=== PATIENT | male | born 1980 | race Caucasian/White ===

== ENCOUNTER 2017-04-02 13:05 | Emergency (ER) | payer BC ==
[2017-04-02 14:02] LABS: BASOPHILS 0.8 % (0.0-2.0); EOSINOPHILS 3.2 % (0.0-6.0); EOSINOPHILS# 0.2 X 10^3uL (0.0-0.4); HEMATOCRIT 46.7 % (42.0-54.0); HEMOGLOBIN 16.3 g/dL (14.0-18.0); LYMPHOCYTES 33.7 % (20.0-40.0); LYMPHOCYTES# 1.8 X 10^3uL (0.8-3.8); MEAN CORPUS. HGB CONCENTRATION 34.9 g/dL (32.0-36.0); MEAN CORPUSCULAR HEMOGLOBIN 30.4 pg (29.0-35.0); MEAN PLATELET VOLUME 6.9 fL (7.4-10.4); MONOCYTES 6.3 % (2.0-10.0); MONOCYTES# 0.3 X 10^3uL (0.2-1.0); NEUTROPHILS# 3.1 X 10^3uL (2.6-6.7); PLATELET COUNT 201 X 10^3uL (130-440); RED BLOOD COUNT 5.37 X 10^6uL (4.20-6.10); RED CELL DISTRIBUTION WIDTH 12.2 % (11.5-14.5); WHITE BLOOD COUNT 5.4 X 10^3uL (3.9-10.7)
[2017-04-02 14:12] LABS: BLOOD UREA NITROGEN 32 mg/dL (9-20); CALCIUM 9.9 mg/dL (8.4-10.2); CHLORIDE 110 mmol/L (98-107); EST GLOMERULAR FILTRATION RATE > 60 mL/min; GLUCOSE 100 mg/dL (70-100); POTASSIUM 4.1 mmol/L (3.5-5.1); SODIUM 144 mmol/L (137-145)
--- NOTE | 2017-04-02 14:13 | RADIOLOGY REPORT ---
HISTORY: Shortness of breath. COMPARISON: None. TECHNIQUE: Portable AP chest. FINDINGS: Lungs clear. No pleural effusions or pneumothoraces. Cardiac silhouette and mediastinal soft tissues within normal limits for AP projection. Very mild levoscoliosis thoracic spine which is likely posit ional. IMPRESSION: No acute cardiopulmonary process. Final Electronic Signature: This report was electronically signed by Ryan Hall MD on 04/02/2017 2 :11 PM. patria /
[2017-04-02 14:26] LABS: TROPONIN I < 0.012 ng/mL (0.00-0.034)
--- NOTE | 2017-04-02 15:00 | ER NURSING DOCUMENTATION ---
Nurse's Notes [facility] Name:Addy Hoang Age:37 yrs Sex:Male :1980 Arrival Date:04/02/2017 Time:13:05 Bed1 Private MD: Diagnosis:Malaise & Fatigue;Shortness of Breath-2nd to Altitude Illness Presentation: 04/02 13:26 Presenting complaint: Patient states: difficulty getting his breath since yesterday. sc1 Transition of care: Home. 13:26 Method Of Arrival: Private Vehicle ks1 13:26 Acuity: BHUMI 3 sc1 Triage Assessment: 13:28 General: Appears in no apparent distress, well developed, well nourished, well groomed, sc1 Behavior is cooperative, pleasant. Pain: Denies pain. Respiratory: Reports shortness of breath at rest on exertion since yesterday Onset: The symptoms/episode began/occurred yesterday, the patient has moderate shortness of breath. Historical: - Allergies: No known drug Allergies; - Home Meds: 1. Topamax Oral 2. levothyroxine oral - PMHx: None; - Ebola Screening: : Patient negative for fever greater than or equal to 101.5 degrees Fahrenheit, and additional compatible Ebola Virus Disease symptoms. Patient denies exposure to infectious person. Patient denies travel to an Ebola-affected area in the 21 days before illness onset. No symptoms or risks identified at this time. . - Immunization history: Flu Vaccine < 1 year. - Social history: Smoking status: Patient states was never smoker of tobacco. Patient/guardian denies using alcohol, street drugs, IV drugs, marijuana. Screenin:31 Infectious Disease Risk None. Abuse screen: Denies threats or abuse. Nutritional ks1 screening: No deficits noted. Assessment: 14:58 Cardiovascular: No deficits noted. Rhythm is regular. Respiratory: Airway is patent sc1 Respiratory effort is even, unlabored, Breath sounds are clear bilaterally. Vital Signs: 13:30 BP 112 / 69; Pulse 60; Resp 18; Temp 98.3; Pulse Ox 97% on R/A; sc1 ED Course: 13:11 Patient arrived in ED. ama 13:21 Chip Cheng MD is Attending Physician. cd 13:26 Celena Farooq RN is Primary Nurse. sc1 13:27 Triage completed. sc1 13:31 Notified ED Physician of patient's arrival and chief complaint. Dr. Cheng notified. Bed ks1 in low position Call Light in Reach Gowned HOB Elevated. 13:55 Port Xray Completed. 14:05 Patient moved back from radiology. 14:05 EKG done per protocol. Performed by ED Staff. Shown to ED physician. [facility] 14:49 EKG attached [facility] Administered Medications: No medications were administered Outcome: 14:49 Discharge ordered by . margaux 14:58 Discharged to home ambulatory. [facility] 14:58 Condition: stable 14:58 Discharge instructions given to patient, Instructed on discharge instructions, follow up and referral plans. Demonstrated understanding of instructions. 14:59 Patient left the ED. [facility] 04/03 14:06 Discharge F/U Call: Unable to reach: no answer st Signatures: Halle Snyder, RN RN Celena Corona RN RN ks1 Chip Cheng MD MD cd Kimbro, Marcy Watson Patel, Panda Reg ama
--- NOTE | 2017-04-02 15:00 | ER PHYSICIAN DOCUMENTATION ---
Physician Documentation [facility] Name:Addy Hoang Age:37 yrs Sex:Male :1980 Arrival Date:04/02/2017 Time:13:05 Bed1 Private MD: Chip Rivero Disposition: 04/02 14:42 Chart complete. cd 14:48 Critical Care: not applicable. cd Disposition: 04/02/17 14:49 Discharged to Home/Self Care. Impression: Malaise & Fatigue, Shortness of Breath - 2nd to Altitude Illness. - Condition is Good. - Discharge Instructions: DYSPNEA. - Medical Reconciliation form form. - Follow up: Private Physician; When: 7 - 10 days; Reason: Recheck today's complaints, Continuance of care. - Problem is new. - Symptoms have improved. - Notes: If needed, descend to lower elevation on the [place]. Drink 2 - 3 quarts of water every day. Avoid alcohol and higher elevation. Take Tylenol for pain. Rest, no exercise. HPI: 13:25 This 37 yrs old Male presents to ER via Private Vehicle with complaints of cd Shortness Of Breath. 13:25 The patient has shortness of breath with light activity, that occurred at home, patient cd [place] 8,000 [place] elevation. Onset: The symptom(s)/episode began/occurred acutely, this morning. Duration: The symptoms are continuous, and are unchanged since they started. The patient's shortness of breath is aggravated by exertion, is alleviated by nothing. Associated signs and symptoms: Pertinent negatives: chest pain, non-productive cough, productive cough, diaphoresis, fever, loss of consciousness, nausea, vomiting. Severity of symptoms: At their worst the symptoms were moderate in the emergency department the symptoms are unchanged. The patient has not experienced similar symptoms in the past. Historical: - Allergies: No known drug Allergies; - Home Meds: 1. Topamax Oral 2. levothyroxine oral - PMHx: None; - Ebola Screening: : Patient negative for fever greater than or equal to 101.5 degrees Fahrenheit, and additional compatible Ebola Virus Disease symptoms. Patient denies exposure to infectious person. Patient denies travel to an Ebola-affected area in the 21 days before illness onset. No symptoms or risks identified at this time. . - Immunization history: Flu Vaccine < 1 year. - Social history: Smoking status: Patient states was never smoker of tobacco. Patient/guardian denies using alcohol, street drugs, IV drugs, marijuana. ROS: 13:30 ENT: Negative for injury, pain, epistaxis and discharge. cd Neck: Negative for injury, pain, stiffness and swelling. Cardiovascular: Negative for chest pain, palpitations, edema and pleuritic pain. Abdomen/GI: Negative for abdominal pain, nausea, vomiting, diarrhea, constipation, distension, melena, hematochezia and hematemesis. Back: Negative for injury, pain or muscle spasms. : Negative for injury, bleeding, discharge, swelling, dysuria, frequency or urgency. MS/Extremity: Negative for injury, deformity, edema, calf tenderness, pain or coldness. Skin: Negative for injury, rash, itching and discoloration. 13:30 Neuro: Negative for headache, weakness, numbness, tingling, and seizure. cd 13:30 Constitutional: Positive for poor PO intake, Negative for chills, fever. 13:30 Respiratory: Positive for dyspnea on exertion, shortness of breath, Negative for cough, hemoptysis, orthopnea, pleurisy, sputum production, wheezing. 13:30 All other systems are negative. Exam: Head/Face: Normocephalic, atraumatic. Eyes: Pupils equal round and reactive to light, extra-ocular motions intact. Lids and lashes normal. Conjunctiva and sclera are non-icteric and not injected. Cornea within normal limits. Periorbital areas with no swelling, redness, or edema. ENT: Nares patent. No nasal discharge, no septal abnormalities noted. Tympanic membranes are normal and external auditory canals are clear. Oropharynx with no redness, swelling, or masses, exudates, or evidence of obstruction, uvula midline. Mucous membranes moist. Neck: Trachea midline, no thyromegaly or masses palpated, and no cervical lymphadenopathy. Supple, full range of motion without nuchal rigidity, or vertebral point tenderness. No Meningismus. Chest/axilla: Normal chest wall appearance and motion. Nontender with no deformity. No lesions are appreciated. Cardiovascular: Regular rate and rhythm with a normal S1 and S2. No gallops, murmurs, or rubs. Normal PMI, no JVD. No pulse deficits. Respiratory: Lungs have equal breath sounds bilaterally, clear to auscultation and percussion. No rales, rhonchi or wheezes noted. No increased work of breathing, no retractions or nasal flaring. Abdomen/GI: Soft, non-tender, with normal bowel sounds. No distension or tympany. No guarding or rebound. No evidence of tenderness throughout. Back: No spinal tenderness. No costovertebral tenderness. Full range of motion. Skin: Warm, dry with normal turgor. Normal color with no rashes, no lesions, and no evidence of cellulitis. MS/ Extremity: Pulses equal, no cyanosis. Neurovascular intact. Full, normal range of motion. 13:45 Neuro: Awake and alert, GCS 15, oriented to person, place, time, and situation. cd Cranial nerves II-XII grossly intact. Motor strength 5/5 in all extremities. Sensory grossly intact. Cerebellar exam normal. Normal gait. 13:45 Constitutional: The patient appears alert, awake, non-diaphoretic, non-toxic, well developed, well nourished, anxious. 13:45 Cardiovascular: Rate: normal, Rhythm: regular, Pulses: no pulse deficits are appreciated, Heart sounds: normal, Edema: is not appreciated. 13:45 Respiratory: the patient does not display signs of respiratory distress, Respirations: normal, no acute changes, Breath sounds: are normal, clear throughout. Vital Signs: 13:30 BP 112 / 69; Pulse 60; Resp 18; Temp 98.3; Pulse Ox 97% on R/A; sc1 MDM: 13:21 Patient medically screened. cd 13:30 Data interpreted: Pulse oximetry: on room air is 97 %. Interpretation: normal. cd 13:42 Differential diagnosis: Anemia Anxiety Reaction Myocardial Infarction Psychogenic cd pulmonary edema, Pulmonary Embolism Unstable Angina. 13:50 Antibiotic administration: Not indicated, the patient does not have an appreciated cd infiltrate. 14:00 The patient's pulmonary embolism risk score was calculated as follows: No Risks (0 Pts).cd 14:40 Data reviewed: vital signs, nurses notes, old medical records, lab test result(s), EKG, cd radiologic studies, and as a result, I will discharge patient. 14:42 Counseling: I had a detailed discussion with the patient and/or guardian regarding: the cd historical points, exam findings, and any diagnostic results supporting the discharge/admit diagnosis, lab results, radiology results, the need for outpatient follow up, for a recheck, with the patient's primary care provider, to return to the emergency department if symptoms worsen or persist or if there are any questions or concerns that arise at home. ECG:. Response to treatment: the patient's symptoms have markedly improved after treatment, and as a result, I will discharge patient. 14:49 EKG attached [facility] 04/02 14:03 Order name: CBC AUTO DIF, MDIF/RMOR IF IND; Complete Time: 14:48 EDMS 04/02 14:26 Interpretation: Normal. 04/02 14:13 Order name: DDIMER; Complete Time: 14:48 EDMS 04/02 14:26 Interpretation: Normal. 04/02 14:14 Order name: BASIC METABOLIC PANEL; Complete Time: 14:48 EDMS 04/02 14:26 Interpretation: Normal Except: BLOOD UREA NITROGEN 32. 04/02 14:26 Order name: TROPONIN I; Complete Time: 14:48 EDMS 04/02 14:41 Interpretation: Normal. 04/02 14:17 Order name: CHEST; SINGLE VIEW [id number]; Complete Time: 14:26 EDLA 04/02 14:26 Interpretation: Normal. 04/02 13:46 Order name: EKG - 12 Lead; Complete Time: 14:10 cd EC:37 Rate is 76 beats/min. Rhythm is regular. QRS [place] is Normal. [place] interval is normal. QRS cd interval is normal. QT interval is normal. No Q waves. T waves are Normal. No ST changes noted. Clinical impression: Normal ECG and No evidence of ischemia. Interpreted by me. Dispensed Medications: No medications were administered Signatures: Celena Farooq, RN RN [facility] [place] Chip Cheng MD MD cd
== END 2017-04-02 14:59 | disposition home or self-care (01) ==
LOC: ER 13:05
DX: R06.02 Shortness of breath (principal); T70.29XA Other effects of high altitude, initial encounter; R53.81 Other malaise; R53.83 Other fatigue; Z79.899 Other long term (current) drug therapy
CPT/HCPCS: 36415; 71010; 80048; 84484; 85025; 85379; 93005; 99283